=== PATIENT | male | born 1955 | race Caucasian/White ===

== ENCOUNTER 2023-12-26 09:44 | Emergency (ER) | payer MEDICARE, OTHER ==
[2023-12-26] MEDS: Aspirin 81 MG Tab.Chew PO ONE (10:30)
[2023-12-26 10:36] LABS: BASOPHILS ABSOLUTE AUTO 0.1 K/mm3 (0.0-0.2); BASOPHILS PERCENT AUTO 0.8 % (0.0-1.0); EOSINOPHILS ABSOLUTE AUTO 0.1 K/mm3 (0.0-0.4); EOSINOPHILS PERCENT AUTO 1.8 % (0.0-6.0); HEMATOCRIT 51.5 % (42.0-52.0); HEMOGLOBIN 17.9 gm/dl (14.0-18.0); IMMATURE GRAN ABSOLUTE AUTO 0.02 K/mm3 (0.00-0.05); IMMATURE GRAN PERCENT AUTO 0.3 % (0.0-0.4); LYMPHOCYTES ABSOLUTE AUTO 1.5 K/mm3 (1.0-4.8); LYMPHOCYTES PERCENT AUTO 23.5 % (24.0-44.0); MEAN CORPUSCULAR HEMOGLOBIN 31.5 pg (28.0-32.0); MEAN CORPUSCULAR HGB CONC 34.8 g/dl (32.0-36.0); MEAN CORPUSCULAR VOLUME 90.7 fl (83.0-99.0); MEAN PLATELET VOLUME 10.3 fl (9.4-12.4); MONOCYTES ABSOLUTE AUTO 0.3 K/mm3 (0.0-0.8); MONOCYTES PERCENT AUTO 4.7 % (0.0-8.0); NEUTROPHILS ABSOLUTE AUTO 4.5 K/mm3 (1.8-7.7); NEUTROPHILS PERCENT AUTO 68.9 % (41.0-71.0); PLATELET COUNT,PLT 205 K/mm3 (150-400); RED BLOOD CELL COUNT 5.68 M/mm3 (4.52-5.90); WHITE BLOOD CELL COUNT,WBC 6.55 K/mm3 (3.9-11.3)
[2023-12-26 10:45] LABS: INR 1.08; PROTHROMBIN TIME 11.4 SECONDS (9.7-12.0)
[2023-12-26 10:47] LABS: PTT,PARTIAL THROMBOPLSTIN TIME 27.2 SECONDS (21.7-31.4)
[2023-12-26 10:48] LABS: A/G RATIO 1.4 (1-2); ALBUMIN 4.5 g/dl (3.4-5.0); ANION GAP 10.9 (5-15); BILIRUBIN TOTAL 1.1 mg/dL (0.2-1.0); CALCIUM 9.6 mg/dL (8.5-10.1); EST CRCL DRUG DOSING (CG) 77.39 mL/min; MAGNESIUM 2.4 mg/dL (1.8-2.4); PHOSPHORUS 2.8 mg/dL (2.6-4.7); POTASSIUM,K 3.9 mEq/L (3.5-5.1); PROTEIN TOTAL,TP 7.8 g/dl (6.4-8.2)
[2023-12-26 11:08] LABS: APPEARANCE,URINE CLEAR (Clear); BILIRUBIN,URINE NEGATIVE (Negative); COLOR,URINE YELLOW (Yellow); GLUCOSE,URINE 2+ (Negative); KETONES,URINE NEGATIVE (Negative); LEUKOCYTE ESTERASE,URINE NEGATIVE (Negative); NITRITE,URINE NEGATIVE (Negative); OCCULT BLOOD,URINE NEGATIVE (Negative); PROTEIN,URINE NEGATIVE (Negative); UROBILINOGEN,URINE 0.2 (0.2-1.0)
[2023-12-26 11:14] LABS: D-DIMER QUANTITATIVE < 0.19 mg/L (0.19-0.50)
[2023-12-26 12:51] LABS: HEMOGLOBIN A1C 6.2 %
[2023-12-26 15:16] VITALS: BP 125/73; PULSE 59
== END 2023-12-26 15:15 | disposition home or self-care (01) ==
LOC: JD.ED 09:44
DX: R07.89 Other chest pain (principal); R73.03 Prediabetes; Z79.82 Long term (current) use of aspirin; Z79.899 Other long term (current) drug therapy
CPT/HCPCS: 36415; 71045; 80053; 81003; 83036; 83735; 84100; 84484; 85025; 85379; 85610; 85730; 93005; 99285; A9270; U0002